=== PATIENT | male | born 1985 | race African-American/Black ===

== ENCOUNTER 2018-09-17 16:54 | Emergency (ER) | payer SELFPAY ==
[2018-09-17] MEDS ORDERED: Ketorolac Tromethamine 30 MG/ML VIAL ONE (17:11)
[2018-09-17 17:29] LABS: #Eosinphils 0.1 thou/uL (0.0-0.7); #Lymphocytes 1.5 thou/uL (1.20-3.40); #Monocytes 0.4 thou/uL (0.11-0.59); #Neutrophils 1.2 thou/uL (1.40-6.50); %Eosinophils 1.6 % (0.0-10.0); %Lymphocytes 47.4 % (21.0-51.0); %Monocytes 12.1 % (0.0-10.0); %Neutrophils 37.8 % (42.0-75.0); Hemoglobin 12.7 g/dL (14.0-18.0); Mean Corpuscular HGB CONC 33.8 g/dL (32.0-36.0); Mean Corpuscular Hemoglobin 29.4 pg (27.0-31.0); Mean Corpuscular Volume 86.9 fL (78.0-98.0); Mean Platelet Volume 7.3 fL (7.4-10.4); Platelet Count 210 thou/uL (130-400); RBC Distribution Width 12.4 % (11.5-14.5); Red Blood Cell (RBC) Count 4.34 mill/uL (4.70-6.10); White Blood Cell (WBC) Count 3.1 thou/uL (4.8-10.8)
[2018-09-17 17:52] LABS: ALT (SGPT) 19 U/L (8-55); AST (SGOT) 15 U/L (5-34); Albumin 3.9 g/dL (3.5-5.0); Alkaline Phosphatase 79 U/L (40-150); Anion Gap 10 mmol/L (10-20); BUN (Urea Nitrogen) 15 mg/dL (8.9-20.6); Bilirubin, Total 0.4 mg/dL (0.2-1.2); Calc. Creatinine Clearance 0 mL/min (70-130); Calcium 8.7 mg/dL (7.8-10.44); Carbon Dioxide 26 mmol/L (22-29); Chloride 104 mmol/L (98-107); Estimated GFR-MDRD 61; Glucose 91 mg/dL (70-105); Lipase 12 U/L (8-78); Protein, Total 6.9 g/dL (6.0-8.3); Sodium 136 mmol/L (136-145)
--- NOTE | 2018-09-17 18:16 | RAD ---
FRONTAL RADIOGRAPH CHEST 09/17/18 COMPARISON: 02/26/14 HISTORY: Chest pain. FINDINGS: There is no pneumothorax, pleural fluid, focal consolidation, or alveolar edema. Heart and mediastina l contours are unremarkable. IMPRESSION: No acute findings. POS: [facility]
== END 2018-09-17 18:50 | disposition home or self-care (01) ==
LOC: ERS 16:54
DX: R07.89 Other chest pain (principal); F17.210 Nicotine dependence, cigarettes, uncomplicated
CPT/HCPCS: 36415; 71045; 80053; 83690; 84484; 85025; 93005; 96374; J1885

== ENCOUNTER 2018-12-24 10:02 | Emergency (ER) | payer SELFPAY ==
[~2018-12-24 10:02] MED LIST: Dexamethasone 20 MG/5 ML VIAL ONE; Ketorolac Tromethamine 30 MG/ML VIAL ONE; Lidocaine 1% PF 5 ML VIAL ONE; Ondansetron PF 4 MG/2 ML Vial ONE; PROPOFOL 200 MG/20 ML VIAL ONE; ePHEDrine/0.9% NaCl/PF SYRINGE 50 mg/10 ml ONE
--- NOTE | 2018-12-24 11:10 | RAD ---
XR Hand Lt 3 View STANDARD History: Pain and swelling Comparison: None. Findings: No acute fracture or malalignment. Soft tissues are unremarkable. Impression: No acute osseous mallet.
[2018-12-24 12:18] LABS: #Basophils 0.1 thou/uL (0.0-0.2); #Eosinphils 0.1 thou/uL (0.0-0.7); #Lymphocytes 2.6 thou/uL (1.20-3.40); #Monocytes 0.4 thou/uL (0.11-0.59); %Basophils 1.1 % (0.0-1.0); %Eosinophils 1.9 % (0.0-10.0); %Lymphocytes 49.7 % (21.0-51.0); %Monocytes 8.3 % (0.0-10.0); Hemoglobin 13.7 g/dL (14.0-18.0); Mean Corpuscular HGB CONC 32.7 g/dL (32.0-36.0); Mean Corpuscular Hemoglobin 28.6 pg (27.0-31.0); Mean Corpuscular Volume 87.4 fL (78.0-98.0); Mean Platelet Volume 6.8 fL (7.4-10.4); Platelet Count 251 thou/uL (130-400); RBC Distribution Width 12.4 % (11.5-14.5); Red Blood Cell (RBC) Count 4.79 mill/uL (4.70-6.10); White Blood Cell (WBC) Count 5.2 thou/uL (4.8-10.8)
[2018-12-24 12:46] LABS: ALT (SGPT) 12 U/L (8-55); AST (SGOT) 14 U/L (5-34); Albumin 4.7 g/dL (3.5-5.0); Alkaline Phosphatase 90 U/L (40-110); Anion Gap 14 mmol/L (10-20); BUN (Urea Nitrogen) 14 mg/dL (8.9-20.6); Bilirubin, Total 0.6 mg/dL (0.2-1.2); Calc. Creatinine Clearance 0 mL/min (70-130); Carbon Dioxide 27 mmol/L (22-29); Chloride 104 mmol/L (98-107); Estimated GFR-MDRD Greater than 90; Globulin 2.8 g/dL (2.4-3.5); Glucose 93 mg/dL (70-105); Potassium 4.2 mmol/L (3.5-5.1); Protein, Total 7.5 g/dL (6.0-8.3); Sodium 141 mmol/L (136-145)
[2018-12-24] MEDS ORDERED: Bacitracin Zinc Ointment 30 gm TUBE ONE (14:37)
[2018-12-24] MEDS ORDERED: Sodium Chloride 0.9% 10 ML ONE (14:37)
[2018-12-24] MEDS ORDERED: Bupivacaine PF 0.5% 30 ML VIAL ONE (14:37)
[2018-12-24] MEDS ORDERED: Ketorolac Tromethamine 30 MG/ML VIAL ONE (15:39)
[2018-12-24 15:40] LABS: CK (CPK) 139 U/L (30-200)
[2018-12-24] MEDS ORDERED: HYDROmorphone 0.5 MG/0.5 ML SYRINGE ONE (17:56)
[2018-12-24] MEDS ORDERED: Fentanyl 100 MCG/2 ML VIAL ONE (17:56)
[2018-12-24] MEDS ORDERED: traMADol HCl 50 MG TAB ONE (20:15)
[2018-12-26 11:11] LABS: Lyme IgG/IgM AB <0.91 ISR (0.00-0.90)
[2018-12-26 15:16] LABS: ANA Symphony (Qualitative) Negative (Negative); ANA Symphony (Quantitative) 0.2 Ratio (< 0.7 Negative); CCP IgG Antibody 0.5 EliAU/mL (<7 Negative); EliA RAS New Method **** NEW METHOD ****; Rheumatoid Factor IgA Antibody 3.1 IU/mL (<14 Negative); Rheumatoid Factor IgM Antibody 0.9 IU/mL (<3.5 Negative); dsDNA IgG Antibody 0.7 IU/mL (<10 Negative)
== END 2018-12-24 14:43 | disposition admitted as inpatient to this hospital (09) ==
LOC: ERS 10:02
DX: M65.842 Other synovitis and tenosynovitis, left hand (principal); F17.210 Nicotine dependence, cigarettes, uncomplicated
CPT/HCPCS: 36415; 80053; 82550; 83520; 84550; 85025; 85652; 86038; 86140; 86200; 86225; 86618; 87070; 87205; 88305; J1100; J1170; J1885; J2001; J2405; J2704; J3010; J3490; S0020

== ENCOUNTER 2024-02-29 07:04 | Emergency (ER) | payer SELFPAY ==
[2024-02-29] MEDS ORDERED: Sodium Chloride 0.9% 100 ML ONE (07:20)
[2024-02-29] MEDS ORDERED: Ondansetron PF 4 MG/2 ML Vial ONE (07:20)
[2024-02-29] MEDS ORDERED: Boostrix 0.5 ML (Tdap) VIAL (>/=7 yrs of age) ONE (07:20)
[2024-02-29] MEDS ORDERED: CEFAZOLIN 2 GM VIAL ONE (07:20)
[2024-02-29] MEDS ORDERED: Morphine 2 MG/ML VIAL ONE (07:20)
[2024-02-29 07:26] LABS: #Basophils 0.03 10x3/uL (0.0-0.2); %Basophils 0.8 % (0.0-1.0); %Eosinophils 1.3 % (0.0-10.0); %Lymphocytes 48.9 % (21.0-51.0); %Monocytes 9.1 % (0.0-10.0); %Neutrophils 39.6 % (42.0-75.0); Hematocrit 39.2 % (42.0-52.0); Mean Corpuscular HGB CONC 33.2 g/dL (32.0-36.0); Mean Corpuscular Volume 84.5 fL (78.0-98.0); Platelet Count 276 10x3/uL (130-400); RBC Distribution Width 13.6 % (11.5-14.5); Red Blood Cell (RBC) Count 4.64 mill/uL (4.70-6.10)
[2024-02-29 07:38] LABS: ALT (SGPT) 26 U/L (8-55); AST (SGOT) 20 U/L (5-34); Albumin 4.2 g/dL (3.5-5.0); Alkaline Phosphatase 95 U/L (40-110); Anion Gap 15 mmol/L (10-20); BUN (Urea Nitrogen) 11 mg/dL (8.9-20.6); Bilirubin, Total 0.6 mg/dL (0.2-1.2); Calc. Creatinine Clearance 0 mL/min (70-130); Calcium 8.4 mg/dL (7.8-10.44); Carbon Dioxide 24 mmol/L (22-29); Chloride 104 mmol/L (98-107); Estimated GFR 84; Globulin 3.9 g/dL (2.4-3.5); Glucose 95 mg/dL (70-105); Potassium 3.6 mmol/L (3.5-5.1); Protein, Total 8.1 g/dL (6.0-8.3); Sodium 139 mmol/L (136-145)
[2024-02-29] MEDS ORDERED: Lidocaine 1% PF 5 ML VIAL ONE (08:02)
[2024-02-29] MEDS ORDERED: Iopamidol-370 76% 500 ML MDV (1 ML CHARGE) ONE (15:05)
== END 2024-02-29 08:35 | disposition home or self-care (01) ==
LOC: ERS 07:04
DX: S21.111A Laceration without foreign body of right front wall of thorax without penetration into thoracic cavity, initial encounter (principal); F17.210 Nicotine dependence, cigarettes, uncomplicated; Z55.6 Problems related to health literacy; W17.2XXA Fall into hole, initial encounter
CPT/HCPCS: 12001; 71045; 71260; 74177; 80053; 85025; 86850; 86900; 86901; 90471; 90715; 93005; 96374; 96375; G0390; J2272; J2405; Q9967